=== PATIENT | female | born 1980 | race Caucasian/White ===

== ENCOUNTER 2023-09-14 13:00 | Outpatient (RCR) | payer OTHER, SELFPAY ==
--- NOTE | 2023-09-02 16:28 | PT.OIE ---
Current Diagnoses Stiffness of unspecified hip, not elsewhere classified (09/02/23) Sacroiliitis, not elsewhere classified (09/02/23) Sacrococcygeal disorders, not elsewhere classified (09/02/23) Myalgia, other site (09/02/23) Pelvic and perineal pain (09/02/23) Visit Care Team Role Provider Type Other Providers Specialty: Address: Phone: Fax: Email: Chuy Whitehead DO Attending Provider Non-Staff Family Provider Primary Care Provider Referring Provider Specialty: Physical Medicine and Rehab Address: [facility]– [place], [address] Email: Physical Therapy Initial Evaluation PT-OP-A Visit Information Start: 07/20/23 14:50 Freq: Status: Active Protocol: Document 09/02/23 14:14 [facility] (Rec: 09/02/23 14:32 [facility] [id number]) Out-Patient Physical Therapy Visit Information Visit Information Visit Type Initial Evaluation Visit Start Time 14:14 Visit Stop Time 14:45 Total Visit Minutes 31 Visit Number 1 Evaluation Information Evaluation Date 09/02/23 PT-OP-B Current Condition Start: 07/20/23 14:50 Freq: Status: Active Protocol: Document 09/02/23 14:14 [facility] (Rec: 09/02/23 14:32 [facility] [id number]) Current Condition History of Current Condition Onset Date chronic History of Current Condition Mari reports she took a fall as a child landing on a book shelf with her right medial ischium hitting the furnature. She has dealt with pain since then. In 2019 she underwent a hysterectomy which really helped bladder pain she was experiencing. She reports during the time she was healing from her hysterectomy she was T boned and her body went into further spasm. At this point she feels she is 85 percent healed but her pain is in the right side of her gluteals. SHe has been to PT for core strengthening and feels she is much stronger in her core. She has had pelvic PT appts and was told that her pelvic floor was able to relax. SHe had a fall in her manager advertising where she fell and hip her back and since then she has not been able to sit for a long period of time. She uses a CBD lubricant called ephoria. SHe notes her pain comes on after activity or after intercourse. She has difficulty with sitting as this aggravates her pain PT notes she has a history of UTI's since childbood and was diagnosed with IC during she didn not have pain and then after breast feeding the pain returned. Afer her hysterectomy the bladder pain is gone. IT has been at least a year since her last pelvic PT. Treatment Goals Patient/Caregiver Goals pts goals are to help reduce her pain and especially pain with sitting PT-OP-C Subjective Start: 07/20/23 14:50 Freq: Status: Active Protocol: Document 09/02/23 14:15 [facility] (Rec: 09/07/23 15:49 [facility] [id number]) OP-PT Pain Assessment Pain Assessment Grid Paper Pain Assessment Grid Completed Yes Location pelvic pain Pain Location Details sitting aggravates pelvic pain and pain medial to ischium Pain Alleviating Factors Sitting R hip Pain Location Details pain spirals around the right hip from front anterior to medial knee Intensity 5 Scale Used Numeric (0 - 10) Radiating Location from anterior hip to medial right knee to lateral and posterior calf right gluteals Pain Location Details pain is described as being medial to the ischium Intensity 5 Scale Used Numeric (0 - 10) PT-OP-F Manual Assessment Start: 09/02/23 15:18 Freq: Status: Active Protocol: Document 09/02/23 14:15 [facility] (Rec: 09/02/23 15:22 [facility] [id number]) Manual Assessments Soft Tissue Assessment Soft Tissue Mobility Assessment fascial tightness and restrictions found in the obturator internus on the right side, adductor attachments to the pubic bone on the right side and coccygeus tightness on the right, iliopsoas tightness R>L PT-OP-I Pelvic Floor Start: 07/20/23 14:50 Freq: Status: Active Protocol: Document 09/02/23 14:30 [facility] (Rec: 09/07/23 16:03 [facility] [id number]) Pelvic Floor Assessment Urine Pelvic Floor Surgery No Pelvic Clock Pelvic Clock 6-9 Tightness Pelvic Clock Other pt presents with tightness and tenderness in the obturator internus on the right Contraction Ability Manual Muscle Testing Left 3 Manual Muscle Testing Right 3 Manual Muscle Testing Anterior 3 Manual Muscle Testing Posterior 3 PT-OP-J Posture/Palpation/Skin Start: 09/02/23 14:32 Freq: Status: Active Protocol: Document 09/02/23 14:15 [facility] (Rec: 09/02/23 14:34 [facility] [id number]) Posture Evaluation Comments Posture Comments pt stands in a guarded position of the gluteals and rocks back and forth, she has pain with sitting so prefers standing. PT-OP-K Range of Motion Start: 09/07/23 16:04 Freq: Status: Active Protocol: Document 09/02/23 16:08 [facility] (Rec: 09/07/23 16:11 [facility] [id number]) Hip Goniometric Range of Motion Hip ROM Limitations Hip ROM Limitations Soft Tissue Tightness Comments poor hip extension due to iliopsoas tightness and guarding PT-OP-L Special Tests Start: 09/07/23 16:04 Freq: Status: Active Protocol: Document 09/02/23 16:08 [facility] (Rec: 09/07/23 16:11 [facility] [id number]) Special Tests Hip Special Tests Soren Test Results Positive Comments Positive on the right side for iliopsoas tightness PT-OP-Q Treatments Start: 07/20/23 14:50 Freq: Status: Active Protocol: Document 09/02/23 15:04 [facility] (Rec: 09/02/23 15:17 [facility] [id number]) Self-Care/Home Management Treatment Education Other Education Mari was educated on the use of miracle balls for self release of the right posterior gluteals, she was given information on julva cream to help with irritation of the pelvic floor tissue as she describes a raw type of pain in the pelvic floor and she was educated on the anatomy of the obturator internus PT-OP-T Assessment and Plan Start: 07/20/23 14:50 Freq: Status: Active Protocol: Document 09/02/23 14:30 [facility] (Rec: 09/07/23 16:02 [facility] [id number]) Physical Therapy Assessment Rehab Potential Rehabilitation Potential Good Evaluation Complexity Number of Personal Factors/Comorbidities 0 Number of Body Systems Impaired 1-2 Clinical Presentation at Evaluation Stable Impairments Impairments Activity Tolerance,Functional Activities,Functional Mobility ,Pain,ROM,Soft Tissue Mobility ,Strength Goals 4 Impairment poor sitting tolerance due to pain Van Owner Operator Goal (LTG) Mari is able to increase her sitting tolerance to more than 30 min with improved pain control LTG Duration 12 weeks 3 Impairment decreased hip extension on the right with iliopsoas guarding and tightness, + soren test on the right Van Owner Operator Goal (LTG) Mari is able to extend her hip past neutral and presents with decreased iliopsoas tightness and guarding LTG Duration 12 weeks 2 Impairment Muscle guarding and tightness of the iliopsoas along with the obturator internus and pt stands in a posteriorly tilted position Short Term Goal (STG) Mari is educated on postural corrections to help reduce posterior pelvic tilt STG Duration 4 weeks 1 Impairment Right sided hip pain with pain specifically medial to the ischium in the obturator internus muscle region and pain referred down right leg with pain rated 5/10 made worse with sitting Short Term Goal (STG) Mari is educated on stretches for the pelvic floor and hips to help with pain reduction STG Duration 4 weeks Van Owner Operator Goal (LTG) Mari is educated on self release of the obturator internus and this combined with manual therapy techniques has lowered her pain levels from 5/10 to 2-3/10 LTG Duration 12 weeks Assessment Summary Assessment Mari is a 43 year old female who has dealt with chronic pain since childhood after a fall landing with her right ischium on a bookcase. She has dealt with chronic right sided hip pain and chronic bladder pain. She underwent a hysterectomy in 2019 and noted this really helped reduce her bladder pain symptoms. She is here today for her ongoing right pelvic pain and she describes her pain as being medial to the ischium and hard to reach for stretches. Mari was late for today's visit so will need further assessment at her next visit however with palpation today she is very tight in the right obturator internus, coccygeus, and iliopsoas R>L. She has tenderness over the obturator internus with internal pelvic floor assessment. In standing Mari holds herself in a posterior tilted position with gluteal tightness. Sitting increases her pain. Treatment will address the obturator internus tightness and tightness along the coccygeus along with iliopsoas tightness and guarding Physical Therapy Plan Frequency and Duration Frequency of Treatment 1x/Week Duration of treatment (weeks) 12 Plan of Care Start Date 09/02/23 Plan of Care End Date 11/25/23 Therapeutic Interventions Therapeutic Interventions Home Exercise Program,Manual Therapy,Neuromuscular Re- education,Patient/Caregiver Education,Self-Care/Home Management,Soft Tissue Mobilization,Therapeutic Activities,Therapeutic Exercises Modalities Biofeedback,Electric Stimulation Next Visit Focus/Plan Next Note Type Treatment Note Next Visit Plan Begin manual therapy work for obturator internus release and iliopsoas release, review the use of miracle balls for self release
--- NOTE | 2023-09-02 16:29 | PT.OPPOC ---
Physical, Occupational & Speech Therapy At [facility] Current Diagnoses Stiffness of unspecified hip, not elsewhere classified (09/02/23) Sacroiliitis, not elsewhere classified (09/02/23) Sacrococcygeal disorders, not elsewhere classified (09/02/23) Myalgia, other site (09/02/23) Pelvic and perineal pain (09/02/23) Visit Care Team Role Provider Type Other Providers Specialty: Address: Phone: Fax: Email: Chuy Whitehead DO Attending Provider Non-Staff Family Provider Primary Care Provider Referring Provider Specialty: Physical Medicine and Rehab Address: [address] [place] [address], [id number] Email: Plan Of Care PT-OP-T Assessment and Plan Start: 07/20/23 14:50 Freq: Status: Active Protocol: Document 09/02/23 14:30 [facility] (Rec: 09/07/23 16:02 [facility] [id number]) Physical Therapy Assessment Rehab Potential Rehabilitation Potential Good Evaluation Complexity Number of Personal Factors/Comorbidities 0 Number of Body Systems Impaired 1-2 Clinical Presentation at Evaluation Stable Impairments Impairments Activity Tolerance,Functional Activities,Functional Mobility ,Pain,ROM,Soft Tissue Mobility ,Strength Goals 4 Impairment poor sitting tolerance due to pain Shelter Goal (LTG) Mari is able to increase her sitting tolerance to more than 30 min with improved pain control LTG Duration 12 weeks 3 Impairment decreased hip extension on the right with iliopsoas guarding and tightness, + leatha test on the right [employer] Machine Bluer Goal (LTG) Mari is able to extend her hip past neutral and presents with decreased iliopsoas tightness and guarding LTG Duration 12 weeks 2 Impairment Muscle guarding and tightness of the iliopsoas along with the obturator internus and pt stands in a posteriorly tilted position Short Term Goal (STG) Mari is educated on postural corrections to help reduce posterior pelvic tilt STG Duration 4 weeks 1 Impairment Right sided hip pain with pain specifically medial to the ischium in the obturator internus muscle region and pain referred down right leg with pain rated 5/10 made worse with sitting Short Term Goal (STG) Mari is educated on stretches for the pelvic floor and hips to help with pain reduction STG Duration 4 weeks Shelter Goal (LTG) Mari is educated on self release of the obturator internus and this combined with manual therapy techniques has lowered her pain levels from 5/10 to 2-3/10 LTG Duration 12 weeks Assessment Summary Assessment Mari is a 43 year old female who has dealt with chronic pain since childhood after a fall landing with her right ischium on a bookcase. She has dealt with chronic right sided hip pain and chronic bladder pain. She underwent a hysterectomy in 2019 and noted this really helped reduce her bladder pain symptoms. She is here today for her ongoing right pelvic pain and she describes her pain as being medial to the ischium and hard to reach for stretches. Mari was late for today's visit so will need further assessment at her next visit however with palpation today she is very tight in the right obturator internus, coccygeus, and iliopsoas R>L. She has tenderness over the obturator internus with internal pelvic floor assessment. In standing Mari holds herself in a posterior tilted position with gluteal tightness. Sitting increases her pain. Treatment will address the obturator internus tightness and tightness along the coccygeus along with iliopsoas tightness and guarding Physical Therapy Plan Frequency and Duration Frequency of Treatment 1x/Week Duration of treatment (weeks) 12 Plan of Care Start Date 09/02/23 Plan of Care End Date 11/25/23 Therapeutic Interventions Therapeutic Interventions Home Exercise Program,Manual Therapy,Neuromuscular Re- education,Patient/Caregiver Education,Self-Care/Home Management,Soft Tissue Mobilization,Therapeutic Activities,Therapeutic Exercises Modalities Biofeedback,Electric Stimulation Next Visit Focus/Plan Next Note Type Treatment Note Next Visit Plan Begin manual therapy work for obturator internus release and iliopsoas release, review the use of miracle balls for self release Plan of Care Dates Plan of Care Start Date 09/02/23 Plan of Care End Date 11/25/23 Electronically Signed by: Sana Lee, PT 09/07/23 0985 If you are in agreement with this Plan of Care, please return a signed and dated copy. I have reviewed this Plan of Care and certify that the skilled therapy services above are required to meet the patient?s needs. Physician Signature Date Printed Name and Credentials Clinical Instructor Signature Printed Name and Credentials
--- NOTE | 2023-09-14 14:48 | PT.OTN ---
Current Diagnoses Stiffness of unspecified hip, not elsewhere classified (09/14/23) Sacroiliitis, not elsewhere classified (09/14/23) Sacrococcygeal disorders, not elsewhere classified (09/14/23) Myalgia, other site (09/14/23) Pelvic and perineal pain (09/14/23) Physical Therapy Treatment Note PT-OP-A Visit Information Start: 07/20/23 14:50 Freq: Status: Active Protocol: Document 09/14/23 13:00 [facility] (Rec: 09/14/23 13:50 [facility] [id number]) Out-Patient Physical Therapy Visit Information Visit Information Visit Type Treatment Note Visit Start Time 13:00 Visit Stop Time 13:45 Total Visit Minutes 45 Visit Number 2 Evaluation Information Evaluation Date 09/02/23 PT-OP-B Current Condition Start: 07/20/23 14:50 Freq: Status: Active Protocol: Document 09/02/23 14:14 [facility] (Rec: 09/02/23 14:32 [facility] [id number]) Current Condition History of Current Condition Onset Date chronic History of Current Condition Mari reports she took a fall as a child landing on a book shelf with her right medial ischium hitting the furnature. She has dealt with pain since then. In 2019 she underwent a hysterectomy which really helped bladder pain she was experiencing. She reports during the time she was healing from her hysterectomy she was T boned and her body went into further spasm. At this point she feels she is 85 percent healed but her pain is in the right side of her gluteals. SHe has been to PT for core strengthening and feels she is much stronger in her core. She has had pelvic PT appts and was told that her pelvic floor was able to relax. SHe had a fall in her world designer where she fell and hip her back and since then she has not been able to sit for a long period of time. She uses a CBD lubricant called ephoria. SHe notes her pain comes on after activity or after intercourse. She has difficulty with sitting as this aggravates her pain PT notes she has a history of UTI's since childbood and was diagnosed with IC during she didn not have pain and then after breast feeding the pain returned. Afer her hysterectomy the bladder pain is gone. IT has been at least a year since her last pelvic PT. Treatment Goals Patient/Caregiver Goals pts goals are to help reduce her pain and especially pain with sitting PT-OP-C Subjective Start: 07/20/23 14:50 Freq: Status: Active Protocol: Document 09/14/23 13:00 [facility] (Rec: 09/14/23 13:50 [facility] [id number]) OP-PT Subjective Patient Comments Patient Comments pt notes she loves the miracle balls and is using them as needed, she is also tryingout the DHEA orally and feels it has helped a bit. PT-OP-F Manual Assessment Start: 09/02/23 15:18 Freq: Status: Active Protocol: Document 09/02/23 14:15 [facility] (Rec: 09/02/23 15:22 [facility] [id number]) Manual Assessments Soft Tissue Assessment Soft Tissue Mobility Assessment fascial tightness and restrictions found in the obturator internus on the right side, adductor attachments to the pubic bone on the right side and coccygeus tightness on the right, iliopsoas tightness R>L PT-OP-I Pelvic Floor Start: 07/20/23 14:50 Freq: Status: Active Protocol: Document 09/02/23 14:30 [facility] (Rec: 09/07/23 16:03 [facility] [id number]) Pelvic Floor Assessment Urine Pelvic Floor Surgery No Pelvic Clock Pelvic Clock 6-9 Tightness Pelvic Clock Other pt presents with tightness and tenderness in the obturator internus on the right Contraction Ability Manual Muscle Testing Left 3 Manual Muscle Testing Right 3 Manual Muscle Testing Anterior 3 Manual Muscle Testing Posterior 3 PT-OP-J Posture/Palpation/Skin Start: 09/02/23 14:32 Freq: Status: Active Protocol: Document 09/02/23 14:15 [facility] (Rec: 09/02/23 14:34 [facility] [id number]) Posture Evaluation Comments Posture Comments pt stands in a guarded position of the gluteals and rocks back and forth, she has pain with sitting so prefers standing. PT-OP-K Range of Motion Start: 09/07/23 16:04 Freq: Status: Active Protocol: Document 09/02/23 16:08 [facility] (Rec: 09/07/23 16:11 [facility] [id number]) Hip Goniometric Range of Motion Hip ROM Limitations Hip ROM Limitations Soft Tissue Tightness Comments poor hip extension due to iliopsoas tightness and guarding PT-OP-L Special Tests Start: 09/07/23 16:04 Freq: Status: Active Protocol: Document 09/02/23 16:08 [facility] (Rec: 09/07/23 16:11 [facility] [id number]) Special Tests Hip Special Tests Soren Test Results Positive Comments Positive on the right side for iliopsoas tightness PT-OP-Q Treatments Start: 07/20/23 14:50 Freq: Status: Active Protocol: Document 09/14/23 13:00 [facility] (Rec: 09/14/23 14:46 [facility] [id number]) Therapeutic Exercises Sidelying Exercises sidelying reverse clam shell Side right Reps/Minutes 2 x 10 reps Manual Therapy Treatment Soft Tissue Mobilization gluteal release on the right side of the sacrul Body Location gluteals Mobilization Type Myofascial Release Intensity/Depth Moderate Body Position Prone Comments pt tolerated well, hip flexion and IR/ER was manually performed while releasing the gluteals right obturator internus release Body Location right obturator internus release Mobilization Type Myofascial Release Intensity/Depth Moderate Body Position Sidelying Comments tenderness at the ischium with guarding surrounding the ischium PT-OP-T Assessment and Plan Start: 07/20/23 14:50 Freq: Status: Active Protocol: Document 09/14/23 13:00 [facility] (Rec: 09/14/23 14:46 [facility] [id number]) Physical Therapy Assessment Goals 4 Impairment poor sitting tolerance due to pain [employer] Code Enforcement Officer Goal (LTG) Mari is able to increase her sitting tolerance to more than 30 min with improved pain control LTG Duration 12 weeks 3 Impairment decreased hip extension on the right with iliopsoas guarding and tightness, + soren test on the right [facility] Goal (LTG) Mari is able to extend her hip past neutral and presents with decreased iliopsoas tightness and guarding LTG Duration 12 weeks 2 Impairment Muscle guarding and tightness of the iliopsoas along with the obturator internus and pt stands in a posteriorly tilted position Short Term Goal (STG) Mari is educated on postural corrections to help reduce posterior pelvic tilt STG Duration 4 weeks 1 Impairment Right sided hip pain with pain specifically medial to the ischium in the obturator internus muscle region and pain referred down right leg with pain rated 5/10 made worse with sitting Short Term Goal (STG) Mari is educated on stretches for the pelvic floor and hips to help with pain reduction STG Duration 4 weeks [place] Code Enforcement Officer Goal (LTG) Mari is educated on self release of the obturator internus and this combined with manual therapy techniques has lowered her pain levels from 5/10 to 2-3/10 LTG Duration 12 weeks Assessment Summary Assessment Mari has gotten miracle balls and notes she really likes the release they provide . I did work on the right obturator internus as well as releasing the gluteals today for Mari. She is really tight and guarded at the attachments to the ischium Physical Therapy Plan Frequency and Duration Frequency of Treatment 1x/Week Duration of treatment (weeks) 12 Plan of Care Start Date 09/02/23 Plan of Care End Date 11/25/23 Therapeutic Interventions Therapeutic Interventions Home Exercise Program,Manual Therapy,Neuromuscular Re- education,Patient/Caregiver Education,Self-Care/Home Management,Soft Tissue Mobilization,Therapeutic Activities,Therapeutic Exercises Modalities Biofeedback,Electric Stimulation Next Visit Focus/Plan Next Note Type Treatment Note Next Visit Plan work on releasing the adductor joshua next visit at the attachment to the ischium. Add in happy baby and modified squat stretch
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
== END 2023-11-05 08:31 | disposition home or self-care (01) ==
LOC: PHYS 13:00
PROVIDERS: Family Provider Physical Medicine & Rehabilitation; PCP Physical Medicine & Rehabilitation; Referring Provider Physical Medicine & Rehabilitation; Visit Provider Physical Medicine & Rehabilitation
DX: M46.1 Sacroiliitis, not elsewhere classified (principal); M53.3 Sacrococcygeal disorders, not elsewhere classified; M79.18 Myalgia, other site; R10.2 Pelvic and perineal pain; M25.659 Stiffness of unspecified hip, not elsewhere classified
CPT/HCPCS: 97140; 97161